=== PATIENT | male | born 1970 | race Caucasian/White ===

== ENCOUNTER 2016-05-14 08:56 | Emergency (ER) | payer OTHER ==
[~2016-05-14] VITALS: Ht 182.9 cm; Wt 113.6 kg
[~2016-05-14 08:56] MED LIST: HYDR-4003 PO; IBUP800T28 PO; OMEP40CA36 PO; RANI300T4 PO
[2016-05-14 08:59] VITALS: BP 146/88; PULSE 68; RESP 10; O2SAT 97
--- NOTE | 2016-05-14 09:08 | ED.REPORT ---
HPI-Back Pain 40 and Over Date of Service May 14, 2016 ED Provider: Roly Langley MD Pt is a 46 year old male presenting to the ED complaining of 9/10 back pain onset yesterday. He reports that when he moved a box yesterday he hurt his back and felt a muscle spasm. The pain is currently right in the middle of his back, and he is unable to stand or walk due to crushing pain. He reports that yesterday, the pain was more on the outer edges of his back. Denies numbness, weakness, or change in bowel or bladder habits. He denies previous similar back injury. Pt was seen yesterday at [facility] for similar symptoms. He was given pain medication and muscle relaxer, but has not been able to fill his prescription. Pt has had Ibuprofen, Advil and Oxycodone today. He is also on chronic pain pills for knee pain. Nursing Notes Stated Complaint: BACK PAIN Chief Complaint: Back Pain or Injury Nursing Notes Reviewed: Yes ([employer], [employer] not reconciled) Allergies: Coded Allergies: No Known Allergies (Unverified Allergy, Unknown, 01/19/15) Scheduled Omeprazole (Omeprazole) 40 Mg Capsule.dr 40 MG PO DAILY Scheduled PRN Cyclobenzaprine (Cyclobenzaprine) 10 Mg Tablet 10 MG PO TID PRN PRN Spasm Hydrocodone-Acetaminophen 5-325 mg (Hydrocodone-Acetaminophen 5-325 mg) 1 Each Tablet 0.5-1 TABLET PO Q4H PRN PRN For Pain Hydrocodone-Acetaminophen 5-325 mg (Hydrocodone-Acetaminophen 5-325 mg) 1 Each Tablet 1-2 TABLET PO TID PRN PRN For Pain Ibuprofen (Ibuprofen) 800 Mg Tablet 800 MG PO BID PRN PRN For Pain General Time Seen by : 09:06 Chief Complaint Back pain Hx Obtained From: Patient Arrived By: Walk-in Sudden in Onset?: Yes Onset Occurred: Yesterday Symptom Duration: Since onset Caused by: Lifting Quality: Painful Severity: Current: Severe Severity: Maximum: Severe Recent Healthcare: No recent hospitalization, Recent doctor visit Similar Sx Previous: No Past Medical History Past Medical History Notes: Followed by Dr. 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 Physical Exam Initial Vital Signs Vital Signs (First) Date Time Temp Pulse Resp B/P Pulse Ox O2 Delivery O2 Flow Rate FiO2 05/14/16 08:59 36.4 68 10 146/88 97 Room Air Initial VS: Reviewed, Vital signs normal Head / Eyes: Atraumatic, Normocephalic, PERRL ENT: Mucous membranes moist, Conjunctiva normal, No scleral icterus Skin: Warm, Dry, No cyanosis Psychiatric: Mood/affect normal, Behavior normal, Normal thought content General/Constitutional: Awake, Alert Appears very uncomfortable, does not want to move Respiratory / Chest: No respiratory distress Abdomen: Soft, Non-tender Back: Atraumatic Flank / Spine / Paraspinal: Positive: Lumbar spine tender... (Low) Neurologic: Oriented X3, Speech NL, No motor deficits, No sensory deficits, Reflexes equal bilat No focal deficits Lower Extremity / Pelvis / MS: No swelling, Neurologic intact, Vascular intact , No edema Negative straight leg raise Re-Eval/Medical Decision Med Decision/Clinical Course This is a 46-year-old male presents with a complaint of low back pain. The patient's never had problems with back pain before, but was lifting a heavy box and await in the lock shifted yesterday, and then suddenly felt terrible back pain. He has no numbness, weakness, paresthesias, bowel or bladder dysfunction or red flags acute neurologic issue. But he said terrible uncontrolled pain. He saw his PCP yesterday is given a prescription for oxycodone and a muscle relaxant-but the prescriptions were initially sent to the wrong pharmacy, went back up the prescription for oxycodone filled but the muscle relaxant had not been sent right finally yet. He took the oxycodone once and said it made him feel horrible-sized not had any further doses. His chronic knee pain and takes ibuprofen daily basis so is still taking that. And he does have hydrocodone for the chronic knee pain as well, however he states that he takes generally a half a tab sometimes 2-3 times a week-it is not a daily a routine medication for him.n Reports this morning he just felt worse, he really could not move around since significant pain. He appears quite uncomfortable in the department, even though it comes across a stoic. No neurologic findings are evident indicate need for emergent imaging. Has 2N Condra, switch undergoing surveillance MRIs but up in stable and have not required any intervention. Local history today of acute pain with lifting without radicular symptoms or flags are not demonstrating clear signs that additional imaging or warranted today, even though this is a repeat visit. No clinical features to suggest a fracture, acute disc herniation require acute neuroimaging. There are no red flags to indicate an epidural abscess or other emergent neurologic process. Although the patient has history of enchondromas is followed by oncology, he has just been seen, he is processes have been stable as documented on jail of her MRI imaging which he just had in the past few weeks, I am not finding this is a red flag therefore to indicate need for imaging of the lumbar spine given the clinical presentation today is no features to suggest an oncologic process, and his risk is vanishingly low. The patient received a single dose of Dilaudid IM, and the muscle relaxant cyclobenzaprine and is much improved on reevaluation. I have gone ahead and written a prescription for cyclobenzaprine, I have told to go ahead and stop the oxycodone given how poorly made him feel, but a written for #20 supplemental hydrocodone that he can use for when necessary pain control. I recommended starting at that after 1 tab that he generally takes for his knee pain, using up to 3 times a day but indicated if needed for severe pain likely was in this morning it would be okay for the first couple days to use 2 tabs-but the goal is to get off the hydrocodone in a few days as would be expected. Recommended early mobilization, and he started working on follow-up. I did advise continue his ibuprofen. Routine precautions were reviewed. Patient was discharged ambulatory in improved condition. Source of Hx: Old records Re-Evaluation/Progress #1: Time of Eval: 10:22 Patient Status: Condition improved Re-Evaluation/Progress Note: Pt pain improved to a 6/10. Re-Evaluation/Progress #2: Time of Eval: 10:47 Patient Status: Condition improved Re-Evaluation/Progress Note: Pt feels much better. He is able to move comfortably. Discussed plan for discharge. Pt understands and agrees with plan. Differential Diagnosis: Positive: Musculoskeletal pain, Negative: Abdominal aortic aneurysm, Aortic dissection, Appendicitis, Bowel obstruction, Cauda equina syndrome, Cholangitis, Ectopic , Epidural abscess, Epidural hematoma, Fracture, Herniated disk, Metastasis, Neoplasm, Osteomyelitis, Pancreatitis, Pyelonephritis, Spinal mass, Thoracic aortic dissect, Thoracic strain Counseled Regarding: Diagnosis, Lab results, Need for follow-up, When/why to return to ED Discharge & Departure Impression: Primary Impression: Lumbosacral strain Encounter type: initial encounter Qualified Code: S39.012A - Strain of muscle, fascia and tendon of lower back, initial encounter Disposition: Home Discharge Condition All VS Reviewed: Yes Condition: Improved Additional Instructions: 1. Although extremely painful initially, symptoms are expected to improve with time. 2. Continue ibuprofen up to 800mg three times a day (with food) 3. STOP the oxycodone/APAP. Instead, I have written for additional hydrocodone/ APAP 5/325 1-2 tabs (start with one) up to three times a day. Use sparingly, and only if needed. NOTE: This medication contains a narcotic and causes drowsiness. No driving for at least 4 hours after taking. 4. Take the muscle relaxant cyclobenzaprine 10mg up to three times a day as a supplement. NOTE: This medication also causes drowsiness. No driving for at least 4 hours after taking. 5. No heavy lifting, other activities as tolerated. As soon as possible good to be up and about as this is been shown to decrease duration of symptoms and promote healing. 6. Go ahead and call physical therapy as recommended 7. There is a debate about whether or not to use ice or heat in the setting as the evidence is a bit unclear. I generally recommend heat to the low back. 8. I have written a work note. 9. Return again if new or worsening symptoms Referrals: Cynthia Payne (PCP) Scribe Attestation Portions of this note were transcribed by Roxi Nguyen. I, Dr. Langley personally performed the history, physical exam and medical decision-making; I reviewed and confirmed the accuracy of the information in the transcribed note. Signed by: Brian Starr, 05/14/2016 and 1048. copies to: Cynthia Payne Matthew F MD May 14, 2016 09:08 ROXI NGUYEN May 14, 2016 09:39
[2016-05-14] MEDS ORDERED: HYDROmorphone 1 mg/mL Inj IM ONE (09:40)
[2016-05-14] MEDS ORDERED: Ondansetron 8 mg ODT Tablet PO ONE (09:40)
[2016-05-14] MEDS ORDERED: HYDR-4003 PO (10:17)
[2016-05-14] MEDS ORDERED: CYCL10TA9 PO (10:17)
[2016-05-14 11:03] VITALS: BP 142/95; PULSE 61; RESP 16; O2SAT 94
== END 2016-05-14 11:02 | disposition home or self-care (01) ==
LOC: SED 08:56
DX: S39.012A Strain of muscle, fascia and tendon of lower back, initial encounter (principal); X50.0XXA Overexertion from strenuous movement or load, initial encounter; Y93.89 Activity, other specified; Y92.89 Other specified places as the place of occurrence of the external cause; Y99.0 Civilian activity done for income or pay; Z87.891 Personal history of nicotine dependence
CPT/HCPCS: 96372; 99283; J1170